=== PATIENT | female | born 1980 | race Hispanic/Latino ===

== ENCOUNTER 2021-04-20 04:30 | Emergency (ER) | payer MEDICAID, OTHER ==
[~2021-04-20] VITALS: Ht 165.1 cm; Wt 83.0 kg
[2021-04-20] MEDS ORDERED: IBUPROFEN 600 MG TABLET PO ONE (13:00)
[2021-04-20 13:06] LABS: APPEARANCE,URINE CLEAR (CLEAR); BILIRUBIN,URINE NEGATIVE (NEGATIVE); COLOR,URINE YELLOW (YELLOW); GLUCOSE, URINE (UA) NEGATIVE (NEGATIVE); KETONES,URINE NEGATIVE (NEGATIVE); LEUKOCYTE ESTERASE ,URINE NEGATIVE (NEGATIVE); NITRATE,URINE NEGATIVE (NEGATIVE); OCCULT BLOOD,URINE TRACE-INTACT (NEGATIVE); PH,URINE 5.5 (5.0-8.0); PROTEIN,URINE NEGATIVE (NEGATIVE); UROBILINOGEN,URINE 0.2 mg/dL (0.2-1.0)
[2021-04-20 13:09] LABS: HCG,QUAL RESULT NEGATIVE (NEGATIVE)
[2021-04-20 13:29] LABS: BACTERIA,URINE Few /HPF (None Seen); MUCUS,URINE Few LPF (None Seen); RBC,URINE 0-1 /HPF (0-1); SQUAMOUS EPITHELIAL CELL,UR 0-2 /HPF (0-2); WBC,URINE 0-1 /HPF (0-1)
[2021-04-20] MEDS ORDERED: IBUP-2070 PO (13:44)
[2021-04-20] MEDS ORDERED: CEPH500B PO (13:44)
[2021-04-20] MEDS ORDERED: CYCL10TA16 PO (13:44)
[2021-04-20 13:51] VITALS: BP 116/69
[2021-04-20] MEDS ORDERED: MECL-226 PO (13:55)
== END 2021-04-20 13:54 | disposition home or self-care (01) ==
LOC: EDH 04:36
DX: M54.6 Pain in thoracic spine (principal); R39.15 Urgency of urination; R35.0 Frequency of micturition; Z79.1 Long term (current) use of non-steroidal anti-inflammatories (NSAID)
CPT/HCPCS: 81001; 81025